=== PATIENT | female | born 1985 | race Two or more races ===

== ENCOUNTER 2024-07-23 08:55 | Emergency (ER) | payer OTHER, SELFPAY ==
[2024-07-23 08:56] VITALS: BMI 36.2
[2024-07-23 09:00] VITALS: BP 130/85; PULSE 72; RESP 17; TEMP 36.7; O2SAT 97
--- NOTE | 2024-07-23 09:17 | XR_ITS ---
Examination: CT abdomen with intravenous contrast CT pelvis with intravenous contrast 2-D coronal reconstructions 2-D sagittal reconstructions Date and time of exam:July 23, 2024 1149 hours INDICATIONS: Right-sided abdominal pain and nausea today. CTDI: vol (mGy) 13.2 DLP: (mGycm) 716 Technique: Multiple axial sections of the abdomen and pelvis have been obtained. 64 slice high-resolution scanner used. 3 mm axial sections have been obtained, post intravenous injection 60 cc Isovue-370 2-D sagittal, coronal reconstructions obtained. Low dose protocols were performed. One or more of the following dose reduction techniques were used; automated exposure control, adjustment of the mA and/or KV according to patient size, use of iterative reconstruction technique. Findings: No focal liver or splenic lesions No gallstones No pancreatic or adrenal mass 21 x 20 mm solid tumor mass medial upper right kidney, coronal image 93, axial image 87 No renal calculi or hydronephrosis Aorta normal size No bowel obstruction Normal appendix Scattered colonic diverticulosis Retroverted uterus No adnexal mass 13 mm left ovarian follicular cyst No bladder mass or bladder calculi Osseous structures intact IMPRESSION: 21 x 20 mm solid tumor mass medial upper right kidney most consistent with early renal cell carcinoma Recommend MRI abdomen pre and post contrast follow-up for staging
--- NOTE | 2024-07-23 09:18 | PD.EDRME ---
Rapid Medical Screening Exam RME Arrival date/time: 07/23/24 08:55 39-year-old female presents emergency department for complaint of abdominal pain today Chief Complaint: Abdominal Pain Vital signs: Vital Signs Temperature 98.0 F 07/23/24 09:00 Pulse Rate 72 07/23/24 09:00 Respiratory Rate 17 07/23/24 09:00 Blood Pressure 130/85 H 07/23/24 09:00 Pulse Oximetry (%) 97 07/23/24 09:00 Oxygen Delivery Method Room Air 07/23/24 09:00
[2024-07-23 09:42] LABS: Basophils % (Auto) 1 % (0-2.5); Eosinophils % (Auto) 0 % (0-10); Hematocrit 36.5 % (36.0-46.0); Hemoglobin 13.2 g/dL (12.0-16.0); Immature Granulocytes % (Auto) 0 % (0-0); Immature Granulocytes Auto 0.01 Thou/mm3 (0.00-0.00); Lymphocytes # (Auto) 1.9 Thou/mm3 (1.0-4.8); Lymphocytes % (Auto) 26 % (10-50); Mean Corpuscular HGB Conc 36.2 g/dl (31.0-37.0); Mean Corpuscular Hemoglobin 31.7 pg (25.0-35.0); Mean Corpuscular Volume 88 fL (80-100); Monocytes # (Auto) 0.7 Thou/mm3 (0.0-0.8); Monocytes % (Auto) 9 % (0-12); Neutrophils # (Auto) 4.7 Thou/mm3 (1.8-7.7); Neutrophils % (Auto) 64 % (37-80); Nucleated Red Blood Cell % 0 /100 WBC (0); Platelet Count 195 Thou/mm3 (140-440); RDW Standard Deviation 42.7 fL (36.4-46.3); Red Blood Count 4.16 Miln/mm3 (4.00-5.20); White Blood Count 7.4 Thou/mm3 (3.6-11.0)
--- NOTE | 2024-07-23 09:53 | EDNOTE_ITS ---
<Statement entered by Alma Lino MD - 08/03/24 01:03> I, Alma Lino MD, have reviewed the history, exam, and assessment of the patient. I have evaluated the patient independently and agree with the plan of care documented by [ ]. All diagnostic studies were reviewed and discussed. I confirm the diagnosis as documented by the Resident. I was present during the Medical Decision Making for this patient. The patient's plan of care was created between myself and the Resident and consistent with our discussion of the patient's case. ED Abdominal Pain RME/HPI General Chief Complaint: Abdominal Pain Stated complaint: RLQ ABD PAIN, NAUSEA VOMITING SINCE LAST NIGHT Arrival date/time: 07/23/24 08:55 RME / HPI RME / HPI narrative: 07/23/24 08:55 The patient is a 39-year-old female with significant past medical history of hemorrhoids presented to ED with chief complaint of right lower quadrant abdominal pain that started around midnight. Her pain was severe in intensity, constant, no aggravating factor, mildly improved by ibuprofen use, associated with nausea and vomiting. She vomited food particles initially, followed by bilious vomiting. She had associated dizziness this morning and has not passed flatus or gas since this morning. She denied any headache, sore throat, chest pain, SOB, fever or leg swelling. Related Data Allergies Allergy/AdvReac Type Severity Reaction Status Date / Time No Known Allergies Allergy Verified 07/23/24 08:58 Review of Systems Review of Systems Systems Reviewed: All systems reviewed, normal except as documented (Above) Past Medical History Social History SMOKING STATUS: Never smoker ED Exam Narrative Physical exam: General: Cooperative female, no acute distress, Alert and Oriented x 3 HEENT: Moist mucous membranes, oropharynx clear Neck: Supple, No masses, No JVD CVS: S1S2 Regular rate and rhythm, No murmurs, rubs or gallops Lungs: Clear to auscultation with no accessory use, no wheeze no rhonchi Abd: Soft, tenderness over right lower quadrant/ND, +BS, no organomegaly Ext: No edema, warm and well perfused Skin: No rash Psych: Appropriate mood and affect Course Quality Measures none Orders Category Date Time Status CT Screening NOW Care 07/23/24 09:17 Active Insert IV NOW Care 07/23/24 09:[address] abdomen pelvis w con Stat Exams 07/23/24 09:17 Completed CBC Stat Lab 07/23/24 09:32 Completed Comprehensive Metabolic Panel Stat Lab 07/23/24 09:32 Completed HCG Qualitative,Urine Stat Lab 07/23/24 11:05 Completed Lipase Stat Lab 07/23/24 09:32 Completed UA, C/S IF [Urinalysis, C/S if Indicated] Stat Lab 07/23/24 11:05 Completed Acetaminophen Tab [Tylenol Tab] Med 07/23/24 09:53 Discontinued 650 mg PO X1 ONE Vital Signs Vital signs: Vital Signs Temperature 98.0 F 07/23/24 09:00 Pulse Rate 72 07/23/24 09:00 Respiratory Rate 17 07/23/24 09:00 Blood Pressure 130/85 H 07/23/24 09:00 Pulse Oximetry (%) 97 07/23/24 09:00 Oxygen Delivery Method Room Air 07/23/24 09:00 Abdominal Pain MDM MDM Narrative MDM Narrative:: The patient is a 39-year-old female with significant past medical history of hemorrhoids presented to ED with chief complaint of right lower quadrant abdominal pain that started around midnight. Her pain was severe in intensity, constant, no aggravating factor, mildly improved by ibuprofen use, associated with nausea and vomiting. She vomited food particles initially, followed by bilious vomiting. She had associated dizziness this morning and has not passed flatus or gas since this morning. She denied any headache, sore throat, chest pain, SOB, fever or leg swelling. Her vitals were blood pressure 130/85, pulse 72, RR 17, temperature 98.0, saturating 97% on room air. CBC WNL, CMP revealed BS 109, AST/ALT 39/58 with UA revealing leucocyte esterage positive and WBC 3, but no UTI symptoms. Abd/Pel CT revealed 21 x 20 mm solid tumor mass medial upper right kidney most consistent with early renal cell carcinoma. The patient was given tylenol 650mg x1 after which her pain improved. She was planned to DC home. The patient's management plan was discussed with my attending physician MD Ric Lemus MD, PGY2 Patient data External records reviewed:: [facility] previous records Clinical information provided by:: patient Social determinants that could affect healthcare access:: none Patient has the following chronic illnesses:: History of hemorrhoids How is presenting disease/condition affected by chronic disease/condition?: uneffected by Evaluation data The following diagnostics were reviewed and interpreted by me:: lab results and radiology exam(s) Lab and/or radiology exams considered but not ordered:: None Interpretation Summary: See above Medications / Prescriptions Medications or Prescriptions considered but not ordered:: None Medication administrations:: Medication Administration History Discontinued Medications Acetaminophen (Acetaminophen 325 Mg Tablet) 650 mg PO X1 ONE Stop: 07/23/24 09:54 Last Admin: 07/23/24 10:12 Dose: 650 mg Documented By: DO See above Consultations Consultation(s) initiated? (list below): No Diagnosis Differential diagnosis abdominal pain: acute appendicitis, calculus of kidney, constipation, diverticulitis and small bowel obstruction Most likely diagnosis given after review of the tests above:: Rt Kidney mass Admission Indicated Admission indicated?: not indicated Admission Request Was there a request for admission?: No Disposition Plan Disposition Plan: Discharge Discharge Attestation Discharge Attestation: The patient and all family members were given an opportunity to ask questions and understood the discharge instructions. Discharge instructions specifically effects, indications for sooner follow up or return to the emergency department, and the expected course of current diagnosis. Patient condition: Stable Discharge Plan Plan Patient Disposition: HOME (Self Care) Prescriptions/Referrals Referrals: No Primary/Family,Physician [Primary Care Provider] - In 1 week Problem List Clinical Impression: Renal mass, right Patient/Caregiver Discharge Instructions Discharge Activity: activity as tolerated Education Materials: Simple Kidney Cysts Additional Instructions: You have been discharged by Dr. Wong with the following recommendations: Please follow-up with your PCP within 1 week of discharge, and get further workup for right kidney swelling mass of size 21 x 20 mm over the medial upper kidney, with possibility of renal cell carcinoma. You have been started on: -Tylenol 500 Mg every 6 hourly as needed for pain - Ibuprofen 400 Mg every 6 hourly as needed for breakthrough pain Continue taking all other medicines as prescribed -Recommended to return back to emergency department if your symptoms persists or worsens Print Language: Kyrgyz Stand Alone Forms: [employer] Award Info., Patient Portal Info Letter
[2024-07-23 10:00] LABS: Alanine Aminotransferase 58 U/L (10-49); Albumin, Serum 4.3 gm/dL (3.5-5.0); Albumin/Globulin Ratio 1.5 (1.2-2.2); Alkaline Phosphatase 81 U/L (46-116); Anion Gap 9 (7-16); Aspartate Amino Transferase 39 U/L (0-34); BUN/Creatinine Ratio 20 Ratio (12-20); Bilirubin,Total 0.7 mg/dL (0.3-1.2); Blood Urea Nitrogen 12 mg/dL (9-23); Chloride 107 mMol/L (98-107); Creatinine (Component) 0.6 mg/dL (0.6-1.3); Estimated Creatinine Clearance 127.5 mL/min (>60); Globulin 2.9 gm/dL (2.3-3.5); Glucose 109 mg/dL (74-106); Lipase 32 U/L (12-53); Osmolality,Calculated 278 (275-295); Potassium 3.6 mMol/L (3.4-5.1); Sodium 139 mMol/L (136-145); Total Protein 7.2 gm/dL (5.7-8.2); eGFR > 60 See Note
[2024-07-23] MEDS: ACETAMINOPHEN 325 MG TABLET 650 MG PO (10:12)
[2024-07-23 10:23] VITALS: BP 121/75; PULSE 83; RESP 17; TEMP 36.8; O2SAT 99
[2024-07-23 11:12] LABS: Collection Type, Urine Clean Catch
[2024-07-23 11:28] LABS: HCG Qualitative,Urine Negative
[2024-07-23 11:30] LABS: Bacteria,Urine Rare; Bilirubin,Urine Negative (Negative); Blood,Urine Negative (Negative); Clarity,Urine Clear (Clear/Hazy); Color,Urine Colorless (Lt Yel-Yel); Culture Indicated,Urine Not Indicated; Glucose, Urine Negative (Negative); Ketones,Urine Negative (Negative); Leukocyte Esterase,Urine Positive (Negative); Nitrite,Urine Negative (Negative); PH,Urine 6.5 (5.0-7.0); Protein,Urine Negative (Neg - Trace); RBC,Urine 1 /hpf (0-3); Specific Gravity,Urine 1.009 (1.001-1.035); Squamous Epithelial Cell,Urine 6 /hpf (0-5); Urobilinogen,Urine Negative mg/dL (0.0-1.0); WBC,Urine 3 /hpf (0-5)
[2024-07-23 12:40] VITALS: BP 117/73; PULSE 69; RESP 18; TEMP 37; O2SAT 100
[2024-07-23 14:03] VITALS: BP 132/66; PULSE 75; RESP 17; TEMP 36.9; O2SAT 98
[2024-07-23 15:14] VITALS: BP 125/74; PULSE 80; RESP 16; O2SAT 98
== END 2024-07-23 15:24 | disposition home or self-care (01) ==
PROVIDERS: Nurse Practitioner Primary Care; Emergency Provider Emergency Medicine
DX: N28.89 Other specified disorders of kidney and ureter (principal)
CPT/HCPCS: 36415; 74177; 80053; 81001; 81025; 83690; 85025; 99285; A4649; Q9967; A9270

== ENCOUNTER → 2024-08-18 | Outpatient (CLI) | payer OTHER, SELFPAY ==
[2024-08-18 13:25] LABS: HCG,Qualitative Serum Negative
[2024-08-18 13:30] LABS: Glucose Estimated Average 94 mg/dL (80-131); Hemoglobin A1C 4.9 % Hgb (4.8-6.0)
[2024-08-18 13:32] LABS: Alanine Aminotransferase 39 U/L (10-49); Albumin, Serum 4.6 gm/dL (3.5-5.0); Albumin/Globulin Ratio 1.6 (1.2-2.2); Alkaline Phosphatase 84 U/L (46-116); Anion Gap 6 (7-16); Aspartate Amino Transferase 29 U/L (0-34); BUN/Creatinine Ratio 13 Ratio (12-20); Bilirubin,Total 0.7 mg/dL (0.3-1.2); Blood Urea Nitrogen 10 mg/dL (9-23); Calcium 9.3 mg/dL (8.3-10.6); Calcium (Corrected) 9.3 mg/dL (8.5-10.1); Carbon Dioxide 25.7 mMol/L (20.0-31.0); Chloride 107 mMol/L (98-107); Creatinine (Component) 0.8 mg/dL (0.6-1.3); Globulin 2.8 gm/dL (2.3-3.5); Glucose 98 mg/dL (74-106); Osmolality,Calculated 276 (275-295); Potassium 4.1 mMol/L (3.4-5.1); Sodium 139 mMol/L (136-145); Total Protein 7.4 gm/dL (5.7-8.2); eGFR > 60 See Note
== END | disposition home or self-care (01) ==
LOC: COPL 12:03
PROVIDERS: Referring Provider Specialist; Visit Provider Specialist
DX: Z01.812 Encounter for preprocedural laboratory examination (principal); K60.2 Anal fissure, unspecified; K62.5 Hemorrhage of anus and rectum; K64.2 Third degree hemorrhoids
CPT/HCPCS: 36415; 80053; 83036; 84703

== ENCOUNTER 2024-08-21 23:37 | Emergency (ER) | payer OTHER, SELFPAY ==
[2024-08-22 00:46] VITALS: BP 133/82; PULSE 94; RESP 18; TEMP 36.8; O2SAT 96
--- NOTE | 2024-08-22 00:50 | XR_ITS ---
Examination: CT abdomen with intravenous contrast CT pelvis with intravenous contrast 2-D coronal reconstructions 2-D sagittal reconstructions Date and time of exam:August 22, 2024, 0315 hours Comparison July 23, 2024 INDICATIONS: Epigastric pain today. Status post hemorrhoidectomy CTDI: vol (mGy) 19 DLP: (mGycm) 1075 Technique: Multiple axial sections of the abdomen and pelvis have been obtained. 64 slice high-resolution scanner used. 3 mm axial sections have been obtained, post intravenous injection of 60 cc of Isovue 370 2-D sagittal, coronal reconstructions obtained. Low dose protocols were performed. One or more of the following dose reduction techniques were used; automated exposure control, adjustment of the mA and/or KV according to patient size, use of iterative reconstruction technique. Findings: No focal liver or splenic lesions, diffuse fatty infiltration throughout the liver No gallstones No pancreatic or adrenal mass No renal or ureteral calculi, no hydronephrosis Aorta normal size Normal appendix No bowel obstruction Partially retroverted uterus No adnexal mass Mildly distended urinary bladder Wall thickening involving the rectum, with air densities at the pelvic floor, postoperative change No soft tissue abscess Impression : Wall thickening involving the rectum, consider proctitis Postsurgical change in the perineum and perirectal region, no abscess noted Advise clinical correlation and follow up accordingly
--- NOTE | 2024-08-22 00:52 | EDNOTE_ITS ---
ED Abdominal Pain RME/HPI General Chief Complaint: Wound Recheck / Suture Removal Stated complaint: RECTAL PAIN, BLEEDING Time seen by provider: 08/21/24 23:50 Arrival date/time: 08/21/24 23:37 Source: patient, RN notes reviewed and old records reviewed Mode of arrival: ambulatory Limitations: no limitations RME / HPI RME / HPI narrative: 39yof presents to ED for worsening rectal pain/bleeding with loose stool this evening. Patient s/p hemorrhoidectomy yesterday. No fever, n/v, abdominal pain reported. Patient has taken norco without relief. She tried contacting surgeon but he is out of town. Related Data Allergies Allergy/AdvReac Type Severity Reaction Status Date / Time No Known Allergies Allergy Verified 08/21/24 23:38 Review of Systems Review of Systems Systems Reviewed: All systems reviewed, normal except as documented Constitutional Constitutional: Denies chills and Denies fever(s) Gastrointestinal Gastrointestinal: Denies abdominal pain, Denies fecal incontinence, Reports loose stools, Denies nausea and Denies vomiting Comments: Reports rectal pain/bleeding Past Medical History Surgical History OTHER SURGICAL HX: hemorrhoidectomy Social History SMOKING STATUS: Never smoker Past Medical History Comments PMH COMMENT: denies pmhx ED Exam General Limitations: Present no limitations General appearance: Present alert and in no apparent distress Head Head exam: Present atraumatic and normocephalic Eye Eye exam: Present normal appearance, PERRL and EOMI ENT ENT exam: Present normal exam and mucous membranes moist Neck Neck exam: Present normal inspection and full ROM Chest Chest inspection: Present normal inspection and symmetric chest wall rise Respiratory Respiratory exam: Present normal lung sounds bilaterally; Absent respiratory distress Cardiovascular Cardiovascular exam: Present regular rate and normal rhythm Abdominal Exam Abdominal exam: Present soft; Absent distention, tenderness, guarding or rebound Rectal Exam Rectal exam: Present other (Autism Teacher present, Mireya ANGEL. No active bleeding. No external mass/hemorrhoid. No swelling or fluctuance) Extremities Exam Extremities exam: Present normal inspection and full ROM Neurological Exam Neurological exam: Present alert and oriented X3 Psychiatric Psychiatric exam: Present normal affect and normal mood Skin Skin exam: Present warm, dry, intact and normal color Course Quality Measures none Orders Category Date Time Status CT Screening NOW Care 08/22/24 00:[address] abdomen pelvis w con Stat Exams 08/22/24 00:50 Completed CBC Stat Lab 08/22/24 00:57 Completed CMP [Comprehensive Metabolic Panel] Stat Lab 08/22/24 00:57 Completed HCG,Qualitative Serum Stat Lab 08/22/24 00:57 Completed Morphine Inj Med 08/22/24 00:50 Discontinued 4 mg IVP X1 ONE Ondansetron Inj [Zofran Inj] Med 08/22/24 00:50 Discontinued 4 mg IVP X1 ONE Vital Signs Vital signs: Vital Signs Temperature 98.3 F 08/22/24 00:46 Pulse Rate 94 08/22/24 00:46 Respiratory Rate 18 08/22/24 00:46 Blood Pressure 133/82 H 08/22/24 00:46 Pulse Oximetry (%) 96 08/22/24 00:46 Oxygen Delivery Method Room Air 08/22/24 00:46 Abdominal Pain MDM MDM Narrative MDM Narrative:: 39yof presents to ED for worsening rectal pain/bleeding with loose stool this evening. Patient s/p hemorrhoidectomy yesterday. No fever, n/v, abdominal pain reported. Patient has taken norco without relief. She tried contacting surgeon but he is out of town. Patient reassessed. Symptoms improved in ED after medications administered. Patient is hemodynamically stable, no evidence of active bleed. No evidence of abscess. Encouraged close f/u with surgeon. Patient has norco to take at home. Stable for dc, RTED precautions given. Patient data External records reviewed:: [facility] previous records (07/23/2024 ED visit for renal mass) Clinical information provided by:: patient Social determinants that could affect healthcare access:: none Patient has the following chronic illnesses:: none How is presenting disease/condition affected by chronic disease/condition?: no chronic disease Evaluation data The following diagnostics were reviewed and interpreted by me:: lab results and radiology exam(s) Lab and/or radiology exams considered but not ordered:: none Interpretation Summary: Leukocytosis, WBC [address] abd/pelvis: IMPRESSION: Wall thickening involving the rectum, consider proctitis Postsurgical change in the perineum and perirectal region, no abscess noted Advise clinical correlation and follow up accordingly Dictated By: Ag Carlin MD Medications / Prescriptions Medications or Prescriptions considered but not ordered:: No antibiotics recommended at this time Medication administrations:: Medication Administration History Discontinued Medications Morphine Sulfate (Morphine Sulf Inj 10 Mg/Ml Vial) 4 mg IVP X1 ONE Stop: 08/22/24 00:51 Last Admin: 08/22/24 02:55 Dose: 4 mg Documented By: NAZARIO Ondansetron HCl (Ondansetron Inj 2 Mg/Ml Inj 2 Ml) 4 mg IVP X1 ONE; Protocol Stop: 08/22/24 00:51 Last Admin: 08/22/24 02:54 Dose: 4 mg Documented By: NAZARIO Above medications administered in ED Consultations Consultation(s) initiated? (list below): No Diagnosis Differential diagnosis abdominal pain: other (postop pain, rectal bleed, rectal abscess) Most likely diagnosis given after review of the tests above:: rectal pain, postop pain Admission Indicated Admission indicated?: not indicated Admission Request Was there a request for admission?: No Disposition Plan Disposition Plan: Discharge Discharge Attestation Discharge Attestation: The patient and all family members were given an opportunity to ask questions and understood the discharge instructions. Discharge instructions specifically effects, indications for sooner follow up or return to the emergency department, and the expected course of current diagnosis. Patient condition: Stable Discharge Plan Plan Patient Disposition: HOME (Self Care) Patient condition on transfer: Stable Prescriptions/Referrals Referrals: Catherine Brown MD [Primary Care Provider] - In 1 week Problem List Clinical Impression: Post-op pain, Rectal bleeding Patient/Caregiver Discharge Instructions Education Materials: Managing Post-Op Pain at Home Additional Instructions: Continue to take your [place] at home as needed. Contact your surgeon if symptoms persist or worsen Print Language: Montserratian Stand Alone Forms: Kassidy Award Info., Patient Portal Info Letter RACHEL/ARIE Supervising Physician RACHEL/ARIE Supervising Physician: Zoie
[2024-08-22 01:07] LABS: Basophils # (Auto) 0.1 Thou/mm3 (0.0-0.2); Basophils % (Auto) 0 % (0-2.5); Eosinophils % (Auto) 0 % (0-10); Hematocrit 35.4 % (36.0-46.0); Hemoglobin 12.6 g/dL (12.0-16.0); Immature Granulocytes % (Auto) 0 % (0-0); Immature Granulocytes Auto 0.07 Thou/mm3 (0.00-0.00); Lymphocytes # (Auto) 2.5 Thou/mm3 (1.0-4.8); Lymphocytes % (Auto) 16 % (10-50); Mean Corpuscular HGB Conc 35.6 g/dl (31.0-37.0); Mean Corpuscular Volume 87 fL (80-100); Monocytes # (Auto) 1.3 Thou/mm3 (0.0-0.8); Monocytes % (Auto) 8 % (0-12); Neutrophils # (Auto) 12.1 Thou/mm3 (1.8-7.7); Neutrophils % (Auto) 75 % (37-80); Nucleated Red Blood Cell % 0 /100 WBC (0); Platelet Count 222 Thou/mm3 (140-440); RDW Standard Deviation 43.2 fL (36.4-46.3); Red Blood Count 4.06 Miln/mm3 (4.00-5.20)
[2024-08-22 01:30] LABS: HCG,Qualitative Serum Negative
[2024-08-22 01:31] LABS: Alanine Aminotransferase 26 U/L (10-49); Albumin, Serum 4.3 gm/dL (3.5-5.0); Albumin/Globulin Ratio 1.4 (1.2-2.2); Alkaline Phosphatase 76 U/L (46-116); Anion Gap 7 (7-16); Aspartate Amino Transferase 24 U/L (0-34); BUN/Creatinine Ratio 8 Ratio (12-20); Bilirubin,Total 0.9 mg/dL (0.3-1.2); Blood Urea Nitrogen 7 mg/dL (9-23); Calcium 8.5 mg/dL (8.3-10.6); Calcium (Corrected) 8.5 mg/dL (8.5-10.1); Carbon Dioxide 25.6 mMol/L (20.0-31.0); Chloride 106 mMol/L (98-107); Creatinine (Component) 0.9 mg/dL (0.6-1.3); Glucose 112 mg/dL (74-106); Osmolality,Calculated 276 (275-295); Potassium 3.3 mMol/L (3.4-5.1); Sodium 139 mMol/L (136-145); Total Protein 7.3 gm/dL (5.7-8.2); eGFR > 60 See Note
[2024-08-22 02:35] VITALS: BP 152/99; PULSE 82; RESP 16; TEMP 36.9; O2SAT 100
[2024-08-22] MEDS: ONDANSETRON INJ 2 MG/ML INJ 2 ML 4 MG IVP (02:54)
[2024-08-22] MEDS: MORPHINE SULF INJ 10 MG/ML VIAL 4 MG IVP (02:55)
--- NOTE | 2024-08-22 04:47 | PRELIM_ITS ---
CT scan of the abdomen and pelvis with intravenous contrast (axial sections with sagittal and coronal reformats) August 22, 2024 0315 hours Clinical History: rectal pain/bleeding s/p hemorrhoidectomy Comparison: No prior study is available for comparison. Findings: There is mild heterogeneous attenuation of the lung bases seen. Fatty infiltration of the liver is noted. The gallbladder, pancreas, spleen, kidneys and adrenals are unremarkable. No evidence of bowel obstruction. The appendix is within normal limits (coronal image [id number] ) . There are occasional colonic diverticula without evidence of diverticulitis. There is rectal wall thickening with perirectal fat stranding. There is no mesenteric or retroperitoneal adenopathy. The urinary bladder is unremarkable. The uterus and adnexa are unremarkable. There is no free fluid or free air. Mild degenerative changes are identified in the spine. Post surgical changes are seen in the pelvic floor with subcutaneous fat induration and air loculi. Impression: No evidence of bowel obstruction, free air or abscess. Findings consistent with proctitis, likely postsurgical inflammatory sequelae . Report Electronically Signed By: Anival Muñoz 08/22/2024 4:46:38 AM [EST]
[2024-08-22 05:29] VITALS: BP 132/76; PULSE 86; RESP 16; TEMP 37.2; O2SAT 98
== END 2024-08-22 05:30 | disposition home or self-care (01) ==
PROVIDERS: Physician Assistant; Emergency Provider Emergency Medicine; PCP Family Medicine
DX: G89.18 Other acute postprocedural pain (principal); K62.5 Hemorrhage of anus and rectum
CPT/HCPCS: 36415; 74177; 80053; 84703; 85025; 96374; 96375; 99285; A4649; J2270; J2405; Q9967

== ENCOUNTER → 2024-11-23 | Outpatient (CLI) | payer OTHER, SELFPAY ==
[2024-11-23 17:39] LABS: HCG Qualitative,Urine Negative
== END | disposition home or self-care (01) ==
LOC: SLDO 01-06 08:02
PROVIDERS: PCP Specialist; Referring Provider Specialist; Visit Provider Specialist
DX: Z32.00 Encounter for pregnancy test, result unknown (principal)
CPT/HCPCS: 81025